=== PATIENT | male | born 2000 | race Caucasian/White ===

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

== ENCOUNTER 2022-03-07 14:28 | Emergency (ER) | payer BC ==
[~2022-03-07] VITALS: Ht 182.9 cm; Wt 83.9 kg
[~2022-03-07 14:28] MED LIST: NAPR-690 PO
[2022-03-07 14:36] VITALS: BP_SYST 152
[2022-03-07] MEDS ORDERED: IBUP-1971 PO (14:43)
[2022-03-07] MEDS ORDERED: NEOM28.37 TP (14:43)
--- NOTE | 2022-03-07 14:47 | NUR ---
dr hopkins saw pt in triage for sun burn
--- NOTE | 2022-03-07 14:51 | NUR ---
Patient given written and verbal discharge instructions and verbalizes understanding. TYRONE hopkins MD discussed with patient the results and treatment provided. Patient in stable condition. ID arm band removed. Rx of motrin, neomycin given. Patient educated on pain management and to follow up with PMD. Pain Scale 7. Opportunity for questions provided and answered. Medication side effect fact sheet provided.
== END 2022-03-07 14:49 | disposition home or self-care (01) ==
LOC: SED 14:28
DX: L55.9 Sunburn, unspecified (principal); Z79.899 Other long term (current) drug therapy
CPT/HCPCS: 99282